=== PATIENT | male | born 1975 | race Caucasian/White ===

== ENCOUNTER 2017-04-21 00:25 | Emergency (ER) | payer BC, OTHER ==
[~2017-04-21] VITALS: Ht 175.3 cm; Wt 81.7 kg
[~2017-04-21 00:25] MED LIST: ADDERALL XR 1515 MG PO; BACTRIM DS TAB1 EACH PO; KEFLEX500 MG PO; NORCO 5-325 TA1 EACH PO
[2017-04-21] MEDS ORDERED: AUGMENTIN 875-1 EACH PO (05:55)
[2017-04-21] MEDS ORDERED: ACETAMINOPHEN-1 EAC1 PO (05:55)
[2017-04-21 06:30] VITALS: BP 118/71
== END 2017-04-21 05:57 | disposition home or self-care (01) ==
LOC: ER 00:25
DX: S51.811A Laceration without foreign body of right forearm, initial encounter (principal); F90.9 Attention-deficit hyperactivity disorder, unspecified type; W54.0XXA Bitten by dog, initial encounter; Y93.89 Activity, other specified; Y92.89 Other specified places as the place of occurrence of the external cause; Y99.8 Other external cause status

== ENCOUNTER 2017-11-14 17:48 | Emergency (ER) | payer BC, OTHER ==
[~2017-11-14] VITALS: Ht 175.3 cm; Wt 81.7 kg
[~2017-11-14 17:48] MED LIST changes: +ACETAMINOPHEN-1 EAC1 PO; +AUGMENTIN 875-1 EACH PO
== END 2017-11-14 20:23 | disposition home or self-care (01) ==
LOC: ER 17:48
DX: L03.116 Cellulitis of left lower limb (principal)